=== PATIENT | male | born 1935 | race Caucasian/White ===

== ENCOUNTER 2019-09-07 17:00 | Emergency (ER) | payer OTHER ==
[~2019-09-07] VITALS: Ht 172.7 cm; Wt 79.4 kg
[~2019-09-07 17:00] MED LIST: DILANTIN100 MG PO; DIVALPROEX SOD500 MG; DONEPEZIL HCL O10 MG; FORTAMET500 MG; LISINOPRIL10 MG; MAXIMUM D310000 UNIT; RESTORIL30 M1; RISPERDAL M-TAB2 MG; TUSSI PRES-B L120 M1 PO; ZITHROMAX200 MG PO; ZOCOR40 MG
== END 2019-09-07 20:45 | disposition home or self-care (01) ==
LOC: ER 17:00
DX: S20.211A Contusion of right front wall of thorax, initial encounter (principal); S70.01XA Contusion of right hip, initial encounter; S40.011A Contusion of right shoulder, initial encounter; S30.0XXA Contusion of lower back and pelvis, initial encounter; W06.XXXA Fall from bed, initial encounter; Y93.89 Activity, other specified; Y92.013 Bedroom of single-family (private) house as the place of occurrence of the external cause; Y99.8 Other external cause status

== ENCOUNTER 2020-05-01 21:47 | Inpatient (IN) | payer OTHER ==
[~2020-05-01] VITALS: Ht 167.6 cm; Wt 72.6 kg
[2020-05-01] MEDS ORDERED: PRAVASTATIN SOD20 MG (22:28)
[2020-05-01] MEDS ORDERED: COZAAR50 MG (22:28)
[2020-05-10] MEDS ORDERED: TAMS0.4C PO (16:53)
[2020-05-10] MEDS ORDERED: ARICEPT5 MG PO (16:53)
[2020-05-10] MEDS ORDERED: Proventyl Hfa 200 ME IH (16:53)
[2020-05-10] MEDS ORDERED: LOSARTAN POTASS50 MG PO (16:55)
[2020-05-10] MEDS ORDERED: KEPPRA500 MG PO (16:56)
[2020-05-10] MEDS ORDERED: SIMVASTATIN40 MG PO (16:56)
[2020-05-10] MEDS ORDERED: VITAMIN C500 M1 PO (16:57)
[2020-05-10] MEDS ORDERED: VITAMIN D3125 MC2 PO (16:57)
[2020-05-10] MEDS ORDERED: MELATONIN5 M2 PO (16:58)
[2020-05-10] MEDS ORDERED: CEFDINIR300 MG PO (17:00)
== END 2020-05-10 17:43 | disposition home or self-care (01) | DRG 177 ==
LOC: ER 21:47 → MEDJ 05-02 10:51
PROVIDERS: ADMIT Internal Medicine; ATTEND Internal Medicine
PROC: BW28ZZZ Computerized Tomography (CT Scan) of Head (ICD-10-PCS; 2020-05-01)
PROC: 4A12X4Z Monitoring of Cardiac Electrical Activity, External Approach (ICD-10-PCS; 2020-05-02)
PROC: 8E0ZXY6 Isolation (ICD-10-PCS; 2020-05-02)
PROC: BW2410Z Computerized Tomography (CT Scan) of Chest and Abdomen using Low Osmolar Contrast, Unenhanced and Enhanced (ICD-10-PCS; 2020-05-02)
PROC: BR20ZZZ Computerized Tomography (CT Scan) of Cervical Spine (ICD-10-PCS; 2020-05-02)
PROC: B345ZZZ Ultrasonography of Bilateral Common Carotid Arteries (ICD-10-PCS; 2020-05-02)
PROC: B24BYZZ Ultrasonography of Heart with Aorta using Other Contrast (ICD-10-PCS; 2020-05-02)
PROC: 3E0F7SF Introduction of Other Gas into Respiratory Tract, Via Natural or Artificial Opening (ICD-10-PCS; 2020-05-03)
PROC: XW033E5 Introduction of Remdesivir Anti-infective into Peripheral Vein, Percutaneous Approach, New Technology Group 5 (ICD-10-PCS; principal; 2020-05-05)
DX: U07.1 COVID-19 (principal); J12.89 Other viral pneumonia; J44.9 Chronic obstructive pulmonary disease, unspecified; G25.1 Drug-induced tremor; F19.10 Other psychoactive substance abuse, uncomplicated; R53.1 Weakness; I10 Essential (primary) hypertension; E11.9 Type 2 diabetes mellitus without complications; F03.90 Unspecified dementia, unspecified severity, without behavioral disturbance, psychotic disturbance, mood disturbance, and anxiety

== ENCOUNTER 2020-05-11 15:02 | Emergency (ER) | payer OTHER ==
[~2020-05-11] VITALS: Ht 167.6 cm; Wt 72.6 kg
[~2020-05-11 15:02] MED LIST changes: +ARICEPT5 MG PO; +CEFDINIR300 MG PO; +COZAAR50 MG; +KEPPRA500 MG PO; +LOSARTAN POTASS50 MG PO; +MELATONIN5 M2 PO; +PRAVASTATIN SOD20 MG; +Proventyl Hfa 200 ME IH; +SIMVASTATIN40 MG PO; +TAMS0.4C PO; +VITAMIN C500 M1 PO; +VITAMIN D3125 MC2 PO
== END 2020-05-11 19:22 | disposition home or self-care (01) ==
LOC: ER 15:02
DX: S00.83XA Contusion of other part of head, initial encounter (principal); V49.88XA Car occupant (driver) (passenger) injured in other specified transport accidents, initial encounter; Y93.89 Activity, other specified; Y92.488 Other paved roadways as the place of occurrence of the external cause; Y99.8 Other external cause status

== ENCOUNTER 2021-11-01 23:47 | Inpatient (IN) | payer OTHER ==
[~2021-11-01] VITALS: Ht 160 cm; Wt 59.0 kg
[2021-11-13] MEDS ORDERED: RISPERDAL1 MG PO (16:57)
[2021-11-13] MEDS ORDERED: RESTORIL15 MG PO (16:57)
[2021-11-13] MEDS ORDERED: ARICEPT10 MG PO (16:57)
[2021-11-13] MEDS ORDERED: LOPRESSOR25 MG PO (16:57)
[2021-11-13] MEDS ORDERED: KEPPRA500 MG PO (16:57)
[2021-11-13] MEDS ORDERED: HYDRALAZINE HCL25 MG PO (16:57)
[2021-11-13] MEDS ORDERED: TAMS0.4C PO (16:57)
[2021-11-13] MEDS ORDERED: LOSARTAN POTAS100 MG PO (16:57)
[2021-11-13] MEDS ORDERED: DILANTIN100 MG PO (16:57)
== END 2021-11-13 18:15 | disposition home or self-care (01) | DRG 208 ==
LOC: ER 23:47 → ICU 11-02 13:23 → ICU-2 11-02 13:23 → ICU 11-02 18:22 → MEDI 11-11 22:51
PROVIDERS: ADMIT Internal Medicine; ATTEND Internal Medicine
PROC: 0BH17EZ Insertion of Endotracheal Airway into Trachea, Via Natural or Artificial Opening (ICD-10-PCS; principal; 2021-11-02)
PROC: 5A1945Z Respiratory Ventilation, 24-96 Consecutive Hours (ICD-10-PCS; 2021-11-02)
PROC: B24BZZZ Ultrasonography of Heart with Aorta (ICD-10-PCS; 2021-11-02)
PROC: BW28ZZZ Computerized Tomography (CT Scan) of Head (ICD-10-PCS; 2021-11-02)
PROC: 02HV33Z Insertion of Infusion Device into Superior Vena Cava, Percutaneous Approach (ICD-10-PCS; 2021-11-06)
PROC: 0DJ08ZZ Inspection of Upper Intestinal Tract, Via Natural or Artificial Opening Endoscopic (ICD-10-PCS; 2021-11-09)
PROC: 4A12X4Z Monitoring of Cardiac Electrical Activity, External Approach (ICD-10-PCS; 2021-11-12)
DX: J96.00 Acute respiratory failure, unspecified whether with hypoxia or hypercapnia (principal); J69.0 Pneumonitis due to inhalation of food and vomit; I21.A1 Myocardial infarction type 2; G40.801 Other epilepsy, not intractable, with status epilepticus; N17.8 Other acute kidney failure; E87.0 Hyperosmolality and hypernatremia; N13.8 Other obstructive and reflux uropathy; T18.198A Other foreign object in esophagus causing other injury, initial encounter; R31.0 Gross hematuria; G30.9 Alzheimer's disease, unspecified; R79.89 Other specified abnormal findings of blood chemistry; G93.89 Other specified disorders of brain; F02.80 Dementia in other diseases classified elsewhere, unspecified severity, without behavioral disturbance, psychotic disturbance, mood disturbance, and anxiety; E78.49 Other hyperlipidemia; J44.9 Chronic obstructive pulmonary disease, unspecified; E11.65 Type 2 diabetes mellitus with hyperglycemia; Z79.4 Long term (current) use of insulin; Z20.822 Contact with and (suspected) exposure to COVID-19; F17.200 Nicotine dependence, unspecified, uncomplicated; N40.0 Benign prostatic hyperplasia without lower urinary tract symptoms

== ENCOUNTER 2022-11-02 16:11 | Emergency (ER) | payer OTHER ==
[~2022-11-02] VITALS: Ht 170.2 cm; Wt 72.6 kg
[~2022-11-02 16:11] MED LIST changes: +ARICEPT10 MG PO; +HYDRALAZINE HCL25 MG PO; +LOPRESSOR25 MG PO; +LOSARTAN POTAS100 MG PO; +RESTORIL15 MG PO; +RISPERDAL1 MG PO
[2022-11-02 20:13] LABS: HEMATOCRIT 37.3 % (39.0-48.0); HEMOGLOBIN 12.6 g/dL (13-16.00); MEAN CORPUSCULAR HEMOGLOBIN 32.2 pg (27.00-32.0); MEAN CORPUSCULAR HGB CONC 33.9 g/dl (32.0-36.0); PLATELET COUNT 194 K/uL (150-450); RED BLOOD COUNT 3.92 M/uL (4.00-6.00); RED CELL DISTRIBUTION WIDTH 13.3 % (11.5-14.5)
[2022-11-02 20:24] LABS: ALBUMIN 3.1 gm/dL (3.4-5.0); BILIRUBIN TOTAL 0.21 mg/dL (0.3-1.2); CALCIUM 9.1 mg/dL (8.5-10.1); CREATININE SERUM 1.07 mg/dL (0.70-1.30); GFR 65.84; GLOBULINA 3.9 G/DL (2.4-3.5); POTASSIUM 5.36 mEq/L (3.5-5.1)
== END 2022-11-03 03:16 | disposition home or self-care (01) ==
LOC: ER 16:12
PROVIDERS: General Practice
DX: G91.8 Other hydrocephalus (principal); E11.65 Type 2 diabetes mellitus with hyperglycemia; Z79.84 Long term (current) use of oral hypoglycemic drugs; J06.9 Acute upper respiratory infection, unspecified; G40.802 Other epilepsy, not intractable, without status epilepticus; I10 Essential (primary) hypertension; F03.90 Unspecified dementia, unspecified severity, without behavioral disturbance, psychotic disturbance, mood disturbance, and anxiety; Z20.822 Contact with and (suspected) exposure to COVID-19
CPT/HCPCS: 36415; 96365; 96366; 99284; J1815

== ENCOUNTER 2023-01-12 12:13 | Emergency (ER) | payer OTHER ==
[~2023-01-12] VITALS: Ht 165.1 cm; Wt 52.2 kg
[2023-01-12 15:20] LABS: HEMATOCRIT 35.5 % (39.0-48.0); HEMOGLOBIN 11.9 g/dL (13-16.00); MEAN CORPUSCULAR HEMOGLOBIN 31.8 pg (27.00-32.0); MEAN CORPUSCULAR HGB CONC 33.5 g/dl (32.0-36.0); PLATELET COUNT 240 K/uL (150-450); RED BLOOD COUNT 3.74 M/uL (4.00-6.00); RED CELL DISTRIBUTION WIDTH 13.9 % (11.5-14.5)
[2023-01-12 18:58] LABS: ABG PH 7.424 (7.35-7.45); ABG pCO2 38.5 mmHg (35-45); BASE EXCESS 0.5 mmol/l; BICARBONATE 24.7 mmol/l (23-25); Tco2 25.9 mmol/l; allen test SATISFACTORY; o2 21 %; puncture site RADIAL LEFT
[2023-01-12] MEDS ORDERED: ZITHROMAX500 MG PO (19:21)
[2023-01-12] MEDS ORDERED: BUDESONIDE0.5 MG/2 M IH (19:21)
[2023-01-12] MEDS ORDERED: DIABETIC TUSSI118 M3 PO (19:21)
[2023-01-12] MEDS ORDERED: IPRATROPIU0.2 MG/1 M IH (19:21)
== END 2023-01-12 20:31 ==
LOC: ER 12:14
PROVIDERS: Nurse Practitioner Family
DX: J06.9 Acute upper respiratory infection, unspecified (principal); Z20.822 Contact with and (suspected) exposure to COVID-19; E11.9 Type 2 diabetes mellitus without complications; Z79.84 Long term (current) use of oral hypoglycemic drugs; I10 Essential (primary) hypertension; E78.49 Other hyperlipidemia; G40.802 Other epilepsy, not intractable, without status epilepticus; F03.90 Unspecified dementia, unspecified severity, without behavioral disturbance, psychotic disturbance, mood disturbance, and anxiety; F17.200 Nicotine dependence, unspecified, uncomplicated